=== PATIENT | male | born 1970 | race Two or more races ===

== ENCOUNTER 2018-04-20 10:09 | Outpatient (CLI) | payer OTHER | END 2018-04-20 10:17 | disposition home or self-care (01) | LOC: RAD 10:09 | DX: M19.90 Unspecified osteoarthritis, unspecified site (principal) ==

== ENCOUNTER 2018-05-25 08:00 | Inpatient (IN) | payer OTHER ==
[~2018-05-25] VITALS: Ht 172.7 cm; Wt 106.6 kg
[2018-05-25] MEDS ORDERED: CATAFLAN PO (10:30)
[2018-05-25] MEDS ORDERED: AMILODIPINE PO (10:30)
[2018-05-25] MEDS ORDERED: NORFLEX PO (10:31)
[2018-05-25] MEDS ORDERED: [UNRECOGNIZED DRUG - OTHER] (10:31)
[2018-05-25] MEDS ORDERED: CLONAZEP PO (10:32)
[2018-06-02] MEDS ORDERED: NORVASC5 MG PO (08:52)
[2018-06-02] MEDS ORDERED: DICLOFENAC POTA50 MG PO (08:54)
[2018-06-02] MEDS ORDERED: CLONAZEPAM1 MG PO (08:56)
[2018-06-02] MEDS ORDERED: SILENOR3 MG PO (08:57)
[2018-06-04] MEDS ORDERED: PERCOCET 5-3251 EACH PO (15:55)
[2018-06-04] MEDS ORDERED: ELIQUIS2.5 MG PO (15:55)
[2018-06-04] MEDS ORDERED: DUI500 PO (15:55)
== END 2018-06-04 18:17 | DRG 470 ==
LOC: SURH 06-02 06:47 → O/R 06-02 06:47 → SURH 06-02 08:00
PROVIDERS: Orthopaedic Surgery
PROC: 0MNP0ZZ Release Left Knee Bursa and Ligament, Open Approach (ICD-10-PCS; 2018-06-02)
PROC: 0SRD0J9 Replacement of Left Knee Joint with Synthetic Substitute, Cemented, Open Approach (ICD-10-PCS; principal; 2018-06-02 12:00)
DX: M17.12 Unilateral primary osteoarthritis, left knee (principal); D62 Acute posthemorrhagic anemia; I10 Essential (primary) hypertension; M06.89 Other specified rheumatoid arthritis, multiple sites; M81.0 Age-related osteoporosis without current pathological fracture; E66.01 Morbid (severe) obesity due to excess calories

== ENCOUNTER 2019-06-07 10:45 | Inpatient (IN) | payer OTHER ==
[~2019-06-07] VITALS: Ht 172.7 cm; Wt 111.1 kg
[~2019-06-07 10:45] MED LIST: AMILODIPINE PO; CATAFLAN PO; CLONAZEP PO; CLONAZEPAM1 MG PO; DICLOFENAC POTA50 MG PO; DUI500 PO; ELIQUIS2.5 MG PO; NORFLEX PO; NORVASC5 MG PO; PERCOCET 5-3251 EACH PO; SILENOR3 MG PO; [UNRECOGNIZED DRUG - OTHER]
[2019-06-07] MEDS ORDERED: NAPROXEN500 MG (12:33)
[2019-06-07] MEDS ORDERED: ZESTRIL20 MG (12:33)
[2019-06-07] MEDS ORDERED: CAMBIA50 MG (12:34)
[2019-06-15] MEDS ORDERED: NORFLEX100MG PO (08:24)
[2019-06-17] MEDS ORDERED: ELIQUIS2.5 MG PO (16:57)
[2019-06-17] MEDS ORDERED: DUI500 PO (16:57)
[2019-06-17] MEDS ORDERED: PERCOCET 5-3251 EACH PO (16:57)
== END 2019-06-17 17:17 | DRG 470 ==
LOC: O/R 10:45 → SURH 06-15 06:35 → O/R 06-15 06:35 → SURH 06-15 07:00
PROVIDERS: ADMIT Orthopaedic Surgery
PROC: 0MNN0ZZ Release Right Knee Bursa and Ligament, Open Approach (ICD-10-PCS; 2019-06-15)
PROC: 0SRC0J9 Replacement of Right Knee Joint with Synthetic Substitute, Cemented, Open Approach (ICD-10-PCS; principal; 2019-06-15 07:00)
DX: M17.11 Unilateral primary osteoarthritis, right knee (principal); D62 Acute posthemorrhagic anemia; M22.11 Recurrent subluxation of patella, right knee; I10 Essential (primary) hypertension; E66.01 Morbid (severe) obesity due to excess calories